=== PATIENT | female | born 1940 | race Caucasian/White ===

== ENCOUNTER 2023-03-28 18:51 | Emergency (ER) | payer MEDICARE, SELFPAY ==
--- NOTE | ~2023-03-28 | CT_ITS ---
EXAMINATION: CT ANGIOGRAM OF THE CHEST WITH AND WITHOUT CONTRAST (CT PULMONARY ANGIOGRAM FOR PE) CLINICAL INFORMATION: Weakness, shortness of breath, recent inactivity. COMPARISON: None available. TECHNIQUE: Prior to contrast administration, noncontrast localization images were obtained. Subsequently, multidetector volumetric imaging was performed from the thoracic inlet to below the diaphragms following the administration of 65 mL Omnipaque 350 intravenous contrast. No contrast reaction reported Sagittal, coronal, and MIP oblique sagittal reformatted images were obtained on the CT workstation, uploaded to PACS, and reviewed. This CT examination was performed using dose optimization techniques as appropriate, variously including the following: *Automated exposure control *Adjustment of mA and/or kV according to patient size (this includes techniques or standardized protocols for targeted exams where dose is matched to indication/reason for exam; i.e. extremities or head) *Use of iterative reconstruction technique Total exam dose-length product 173 mGy-cm FINDINGS: QUALITY OF STUDY/CONTRAST BOLUS: Satisfactory. PULMONARY ARTERIES: No pulmonary emboli. THORACIC AORTA: No aneurysm. LUNG: No focal consolidation, nodules or masses. PLEURA: No pleural effusion or pneumothorax. MEDIASTINUM: Normal heart size. No pericardial effusion. No hilar or mediastinal lymphadenopathy. No evidence of septal bowing or right heart strain. CORONARY ARTERY CALCIFICATION: None visualized on this study. CHEST WALL/AXILLA: No axillary or internal mammary lymphadenopathy. OSSEOUS STRUCTURES: No acute or suspicious osseous abnormality. UPPER ABDOMEN: Unremarkable. No reflux of contrast into the hepatic veins to suggest elevated right heart pressures. CT/CT angio chest PE protocol IMPRESSION: No evidence for pulmonary embolism. No focal consolidation or pleural effusion. VTE: Negative.
--- NOTE | ~2023-03-28 | CT_ITS ---
EXAMINATION: CT HEAD WITHOUT CONTRAST CT CERVICAL SPINE WITHOUT CONTRAST CLINICAL INFORMATION: Fall. COMPARISON: None. TECHNIQUE: Imaging was performed from the skull base to vertex without intravenous administration of contrast. In addition, helical noncontrast CT imaging was acquired through the cervical spine and source images were reviewed along with axial reconstructions and sagittal and coronal MPRs. [This CT examination was performed using dose optimization techniques as appropriate, variously including the following: *Automated exposure control *Adjustment of mA and/or kV according to patient size (this includes techniques or standardized protocols for targeted exams where dose is matched to indication/reason for exam; i.e. extremities or head) *Use of iterative reconstruction technique] DLP: 844 mGy-cm FINDINGS: HEAD: No intracranial mass, hemorrhage, or midline shift is visualized. There is generalized global volume loss. There is mild prominence of the ventricles and the sulci . There is mild hypodensity of the periventricular white matter due to chronic small vessel ischemic disease. There are vascular calcifications of the internal carotid arteries bilaterally. No extra-axial collections are identified. No skull fracture. The paranasal sinuses and mastoid air cells are well aerated. CERVICAL SPINE: There is no evidence of acute cervical spine fracture. Vertebral bodies remain normal in height. Cervical vertebrae have normal alignment. There is multilevel degenerative spondylosis of the cervical spine with disc height narrowing and endplate spurs and facet joint arthrosis No pre- or paravertebral soft tissue abnormality is identified. Limited assessment of the lung apices is unremarkable. CT/CT cervical spine wo IV con IMPRESSION: 1. No acute intracranial pathology. 2. No CT evidence of acute cervical spine fracture or traumatic subluxation
[2023-03-28 19:00] VITALS: BP 132/76; PULSE 100; O2SAT 98
[2023-03-28 19:09] VITALS: BP 129/62; PULSE 100; RESP 18; TEMP 36.7; O2SAT 94
[2023-03-28 19:26] VITALS: BP 124/60; PULSE 100; RESP 16; TEMP 36.6; O2SAT 94; BMI 23.6
--- NOTE | 2023-03-28 19:41 | ECG_ITS ---
Test Reason : FALL Blood Pressure : / mmHG Vent. Rate : 094 BPM Atrial Rate : 094 BPM P-R Int : 166 ms QRS Dur : 088 ms QT Int : 350 ms P-R-T Axes : 033 -02 018 degrees QTc Int : 437 ms Normal sinus rhythm Lateral infarct , age undetermined Nonspecific ST abnormality Abnormal ECG When compared with ECG of 27-APR-2018 07:20, Nonspecific T wave abnormality, improved in Inferior leads T wave inversion no longer evident in Anterior leads Referred By: Patrica Romero Electronically Signed By:RENETTA MAY
--- NOTE | 2023-03-28 20:17 | ED.FALL ---
HPI - Fall General Chief Complaint: Fall Stated Complaint: called for lift assist,weakness,no injury Time Seen by Provider: 03/28/23 19:12 Source: patient and other Mode of arrival: EMS History of Present Illness HPI Narrative: This is an 82-year-old female who is brought in by EMS after they were called for a lift assist secondary to weakness and inability to stand. According to the patient she has had a recent compression fracture that she is being treated with point injections and states that she was walking up 1 stair to the entrance of her home this evening fall using her walker and tripped. Patient denies injuries although she has obvious abrasions to the right side of her face/arm and knee, she denies loss of consciousness and then states that when she attempted to stand up she was very weak and could not stand. Related Data Previous Rx's Medication Instructions Recorded cefdinir 300 mg capsule 300 mg PO BID 5 days #10 caps 03/29/23 Allergies Allergy/AdvReac Type Severity Reaction Status Date / Time No Known Allergies Allergy Verified 03/28/23 19:28 Review of Systems Review of Systems: Pertinent positives and negatives as stated in HPI [facility] Past Medical History Source: nursing notes reviewed Social History Social History Smoked in Last 30 Days: No Use of substances other than those prescribed or required for medical reasons: No Advance Directives: No Advance Directives Information Provided: No Physical Exam Vital Signs: Vital Signs: Last Vital Signs Temp 98.5 F 03/29/23 02:20 Pulse 88 03/29/23 02:20 Resp 17 03/29/23 02:20 BP 160/86 H 03/29/23 02:20 Pulse Ox 95 03/29/23 02:20 O2 Del Method Room Air 03/29/23 02:20 BMI result Body Mass Index 23.6 VITAL SIGNS: Reviewed. GENERAL: Well developed, well nourished, in no acute distress. HEAD: Normocephalic/abrasion to right cheek EYES: PERRLA, EOMI EARS: Ext canals without abnormality NOSE: Nares patent bilateral OROPHARYNX: no oral lesions noted, posterior pharynx clear NECK: Supple, no adenopathy LUNGS: Normal breath sounds. No adventitious sounds or accessory muscle use. SpO2<93> CARDIOVASCULAR: Regular rate and rhythm without noted murmurs ABDOMEN: Soft, non-tender, non-distended with bowel sounds. MUSCULOSKELETAL: No tenderness, deformities, or effusions noted on gross inspection. EXTREMITIES: No cyanosis, clubbing or edema. RUE: Superficial abrasions RLE: Superficial abrasions, specifically to the knee SKIN: Inspection of the skin reveals no rashes NEUROLOGIC: Alert and oriented x 4. Strength and sensation to light touch were grossly intact x 4. Medications Administered Discontinued Medications Generic Name Dose Route Start Last Admin Trade Name Swati PRN Reason Stop Dose Admin Sodium Chloride 1,000 mls @ 999 mls/hr 03/28/23 22:15 03/28/23 23:35 Ns IV 03/28/23 23:15 Infused .Q1H1M JEANA Infusion Ceftriaxone Sodium 1 gm/ 50 mls @ 100 mls/hr 03/28/23 22:03 03/28/23 23:00 Sodium Chloride IV 03/28/23 22:32 Infused ONCE ONE Infusion Iohexol 65 ml 03/29/23 01:42 03/29/23 01:44 Iohexol 350 Mg/Ml 100 Ml Infus..Btl IV 03/29/23 01:43 65 ml ONCE ONE Administration Medical Decision Making Medical Decision Making [facility] Narrative: 82-year-old female with history and clinical presentation on initial evaluation appear to be mechanical fall possibly due to infection in we did find a UTI, however on review of serial troponin it is elevated, although patient does deny any chest pain an EKG does not present with any ST elevation. After further thinking I do feel that patient's activity level has likely decreased after the compression fracture and with the elevated troponin of unknown etiology combine with a fall and EKG without significant findings. CT scan of the head without evidence of intracranial hemorrhage and cervical spine without fracture or subluxation and otherwise my interpretation is in agreement with radiology's impression. Will add D-dimer, CPK as possible etiologies for the elevated troponins. D-dimer is elevated to over [address] Bermeo - follow-up CT angio PE protocol - Trop #3 Differential Diagnosis Differential Diagnoses: The differential diagnosis associated with the presentation includes Please see the discussion above Admission/Observation Consideration of admission/observation: Escalation of care including admission/observation considered Please see the discussion above Lab Data [facility] Lab Attestation statement: I reviewed the patient's lab results. Please see the discussion above 03/28/23 20:20 03/28/23 20:20 Labs: Lab Results 03/28/23 03/28/23 03/28/23 Range/Units 20:20 20:59 22:22 WBC 20.7 H (4.8-10.8) X10*3/uL RBC 4.10 L (4.20-5.50) X10*6/uL Hgb 14.0 (12.0-16.0) g/dl Hct 41.1 (37.0-47.0) % MCV 100.2 H (80.0-98.0) fL MCH 34.1 H (27.0-33.0) pg MCHC 34.1 (31.0-35.0) g/dl RDW 14.4 (11.0-16.0) % Plt Count 253 (160-400) X10*3/uL MPV 8.7 L (9.4-12.3) fL Immature Gran % (Auto) 1.3 H (0.0-0.4) % Neut % (Auto) 85.3 H (45-73) % Lymph % (Auto) 4.5 L (20-40) % [place] % (Auto) 8.3 (2-11) % Eos % (Auto) 0.4 (0-4) % Baso % (Auto) 0.2 (0-2) % Lymph # (Auto) 0.9 L (1.2-4.9) X10*3/uL [place] # (Auto) 1.7 H (0.1-1.2) X10*3/uL Eos # (Auto) 0.1 (0.0-0.4) X10*3/uL Baso # (Auto) 0.1 (0.0-0.2) X10*3/uL Abs Immat Gran (auto) 0.26 H (0.00-0.03) X10*3/uL Absolute Neuts (auto) 17.6 H (2.0-8.3) x10*3/uL Absolute Nucleated RBC 0.000 (0.0-0.012) X10*3/uL Nucleated RBC % (auto) 0.0 (0.0-0.2) /100WBC Smear Tech's Comments VERIFIED PT 11.3 (11.1-13.3) SEC INR 0.9 (0.9-1.1) D-Dimer High Sensitivty 1106 NG/ML Sodium 134 L (135-145) mmol/L Potassium 4.0 (3.3-5.1) mmol/L Chloride 105 (96-108) mmol/L Carbon Dioxide 20 L (22-29) mmol/L Anion Gap 13 (12-20) BUN 20 H (9-16) mg/dL Creatinine 0.97 (0.5-1.4) mg/dL Estim Creat Clear Calc 37.9 Estimated GFR 55 Random Glucose 141 H (60-115) mg/dL Lactic Acid 1.4 (0.5-2.0) mmol/L Calcium 9.4 (8.4-10.2) mg/dL Total Bilirubin 0.6 (0.0-1.0) mg/dL AST 14 (5-31) U/L ALT 15 (0-31) U/L Alkaline Phosphatase 100 (39-117) U/L Total Creatine Kinase 23 L (26-140) U/L Troponin I High Sens 57.2 H* 83.6 H* (<3.5-17.0) ng/L Total Protein 6.7 (6.5-8.0) g/dL Albumin 3.4 L (3.5-5.0) g/dL Urine Color Yellow Urine Appearance Cloudy Urine pH 5.5 (5.0-9.0) Ur Specific [place] 1.020 (1.005-1.025) Urine Protein 100 (2+) H (Neg-Trace) mg/dL Urine Glucose (UA) Negative (Negative) mg/dL Urine Ketones Negative (Negative) mg/dL Urine Blood Moderate (2+) H (Negative) Urine Nitrite Positive H (Negative) Ur Leukocyte Esterase Large (3+) H (Negative) Urine RBC 3-5 H (0-2) /HPF Urine WBC >50 H (0-5) /HPF Ur Squamous Epith Cells 0-2 (0-2) /HPF Urine Bacteria 4+ (None Seen) Hyaline Casts >20 (0-2) /LPF Granular Casts Present COVID-19 ([facility]) Negative (Negative) COVID-19 Clin Com See Note Independent Interpretation I performed an independent interpretation of an: EKG Interpretation: Normal sinus rhythm, HR-94, no STEMI, med ST depressions noted in V3-V6. On review of prior EKG from 04/27/2018 there are not significant changes although EKG is abnormal. Normal sinus rhythm, HR-87 STEMI, MI/QRS/QTC is within normal limits. Radiology Impression Discussion of test interpretation with radiology: I have reviewed the radiologist's reading. Radiologist Impression: Please see the discussion above Discharge Plan Discharge Clinical Impression: Fall, Acute UTI Patient Disposition: Still a Patient Prescriptions: New cefdinir 300 mg capsule 300 mg PO BID 5 Days Qty: 10 0RF
[2023-03-28 20:26] LABS: Basophils Absolute Auto 0.1 X10*3/uL (0.0-0.2); Basophils Percent Auto 0.2 % (0-2); Eosinophils Absolute Auto 0.1 X10*3/uL (0.0-0.4); Eosinophils Percent Auto 0.4 % (0-4); Hematocrit 41.1 % (37.0-47.0); Imm Gran Abs Auto 0.26 X10*3/uL (0.00-0.03); Imm Gran Pct Auto 1.3 % (0.0-0.4); Lymphocytes Absolute Auto 0.9 X10*3/uL (1.2-4.9); Lymphocytes Percent Auto 4.5 % (20-40); Mean Corpuscular HGB Conc 34.1 g/dl (31.0-35.0); Mean Corpuscular Hemoglobin 34.1 pg (27.0-33.0); Mean Corpuscular Volume 100.2 fL (80.0-98.0); Mean Platelet Volume 8.7 fL (9.4-12.3); Monocytes Absolute Auto 1.7 X10*3/uL (0.1-1.2); Monocytes Percent Auto 8.3 % (2-11); Neutrophils Absolute Auto 17.6 x10*3/uL (2.0-8.3); Neutrophils Percent Auto 85.3 % (45-73); Platelet Count 253 X10*3/uL (160-400); Red Cell Distribution Width 14.4 % (11.0-16.0); SCAN SMEAR FLAG 1; White Blood Count 20.7 X10*3/uL (4.8-10.8)
[2023-03-28 20:35] LABS: INTERNATIONAL NORM RATIO 0.9 (0.9-1.1); Prothrombin Time 11.3 SEC (11.1-13.3)
[2023-03-28 20:42] LABS: Alanine Aminotransferase 15 U/L (0-31); Albumin Level 3.4 g/dL (3.5-5.0); Alkaline Phosphatase 100 U/L (39-117); Anion Gap 13 (12-20); Aspartate Amino Transferase 14 U/L (5-31); Bilirubin Total 0.6 mg/dL (0.0-1.0); Blood Urea Nitrogen 20 mg/dL (9-16); Calcium 9.4 mg/dL (8.4-10.2); Carbon Dioxide 20 mmol/L (22-29); Chloride 105 mmol/L (96-108); Creatinine Clr Calc Pharmacy 37.9; Estimated Glomerular Filt Rate 55; Glucose Random 141 mg/dL (60-115); Sodium 134 mmol/L (135-145); Total Protein 6.7 g/dL (6.5-8.0)
[2023-03-28 20:43] LABS: COVID-19 Test Negative (Negative); IDNOW Serial# 08D9AD1C
[2023-03-28 20:56] LABS: MANUAL DIFF FLAG SCAN; Troponin-I High Sensitivity 57.2 ng/L (<3.5-17.0)
[2023-03-28 20:57] LABS: SLIDE REVIEW VERIFIED
[2023-03-28 20:59] VITALS: BP 99/52; PULSE 91; RESP 16; TEMP 36.8; O2SAT 93
[2023-03-28 21:08] LABS: Appearance Urine Cloudy; Color Urine Yellow; Glucose Urine UA Negative (Negative); Leukocyte Esterase Urine Large (3+) (Negative); Nitrite Urine Positive (Negative); PH 5.5 (5.0-9.0); UMIC TRIGGER UACC YES; Urine Blood Moderate (2+) (Negative); Urine Ketones Negative (Negative); Urine Protein 100 (2+) mg/dL (Neg-Trace)
[2023-03-28 21:23] LABS: Bacteria Urine 4+ (None Seen); Granular Casts Urine Present; Hyaline Casts Urine >20 /LPF (0-2); Squamous Epithelial Cell Urine 0-2 /HPF (0-2); UACC Culture Trigger YES; WBC Urine >50 /HPF (0-5)
[2023-03-28] MEDS: cefTRIAXone sodium 1 GM in 0.9 % Sodium Chloride 50 ML IV (22:30)
[2023-03-28] MEDS: 0.9 % Sodium Chloride 1,000 ML 999 ML IV (22:31)
[2023-03-28 22:59] LABS: Lactic Acid 1.4 mmol/L (0.5-2.0)
[2023-03-28 23:07] LABS: Troponin-I High Sensitivity 83.6 ng/L (<3.5-17.0)
--- NOTE | 2023-03-28 23:07 | ECG_ITS ---
Test Reason : ELEVATED TROP Blood Pressure : / mmHG Vent. Rate : 087 BPM Atrial Rate : 087 BPM P-R Int : 170 ms QRS Dur : 090 ms QT Int : 368 ms P-R-T Axes : 049 -03 031 degrees QTc Int : 442 ms Normal sinus rhythm Nonspecific ST abnormality Abnormal ECG When compared with ECG of 28-MAR-2023 20:08, No significant change was found Referred By: Patrica Romero Electronically Signed By:RENETTA MAY
[2023-03-28 23:52] LABS: D Dimer High Sensitivity 1106 NG/ML
[2023-03-29 00:10] VITALS: RESP 18
[2023-03-29] MEDS: iohexoL 350 MG/ML 100 ML INFUS..BTL 65 ML IV (01:44)
[2023-03-29 02:20] VITALS: BP 160/86; PULSE 88; RESP 17; TEMP 36.9; O2SAT 95
[2023-03-29 03:42] LABS: Troponin-I High Sensitivity 81.3 ng/L (<3.5-17.0)
== END 2023-03-29 05:07 | disposition home or self-care (01) ==
PROVIDERS: Student in an Organized Health Care Education/Training Program; Emergency Provider Internal Medicine; PCP Family Medicine
DX: S09.90XA Unspecified injury of head, initial encounter (principal); S00.81XA Abrasion of other part of head, initial encounter; S40.811A Abrasion of right upper arm, initial encounter; S80.211A Abrasion, right knee, initial encounter; R51.9 Headache, unspecified; M54.2 Cervicalgia; N39.0 Urinary tract infection, site not specified; W01.10XA Fall on same level from slipping, tripping and stumbling with subsequent striking against unspecified object, initial encounter; Y93.9 Activity, unspecified; Y92.9 Unspecified place or not applicable; Y99.9 Unspecified external cause status; Z20.822 Contact with and (suspected) exposure to COVID-19; Z20.828 Contact with and (suspected) exposure to other viral communicable diseases; Z79.899 Other long term (current) drug therapy
CPT/HCPCS: 36415; 70450; 71275; 72125; 80053; 81001; 82550; 83605; 84484; 85025; 85379; 85610; 87040; 87077; 87086; 87088; 87186; 87205; 87635; 93005; 96365; 99285; J0696; Q9967

== ENCOUNTER 2023-03-29 17:15 | Inpatient (IN) | payer MEDICARE, SELFPAY ==
--- NOTE | 2023-03-29 17:26 | ECG_ITS ---
Test Reason : ABNORMAL LABS Blood Pressure : / mmHG Vent. Rate : 080 BPM Atrial Rate : 080 BPM P-R Int : 182 ms QRS Dur : 088 ms QT Int : 374 ms P-R-T Axes : 031 -16 005 degrees QTc Int : 431 ms Normal sinus rhythm Minimal voltage criteria for LVH, may be normal variant ( R in aVL ) Nonspecific ST abnormality Abnormal ECG When compared with ECG of 28-MAR-2023 23:41, No significant change was found Referred By: Generic ED Physician Electronically Signed By:RENETTA MAY
[2023-03-29 17:43] VITALS: BP 150/72; PULSE 79; RESP 16; TEMP 37.3; O2SAT 98; BMI 23.8
--- NOTE | 2023-03-29 17:44 | ED.GENADULT ---
HPI - General Adult General Chief complaint: Recheck/Abnormal Lab/Rx Stated complaint: abnormal labs, called back in Time Seen by Provider: 03/29/23 19:02 Source: patient and RN notes reviewed Mode of arrival: ambulatory Limitations: no limitations History of Present Illness HPI narrative: This is a 82-year-old female, with a past medical history of polycythemia vera, presenting to the emergency department after being called due to 2 sets of + Gram-negative blood cultures Patient was seen yesterday after having weakness and inability to stand. She was found to have a urinary tract infection, and was given ceftriaxone IV. She was discharged on cefdinir which she has not taken. Patient was called this afternoon stating to return given 2/2 positive gram negative sue blood cultures. Patient reports that she is feeling okay, still reporting generalized malaise and generalized weakness. No fevers, chills, chest pain, shortness from abdominal pain, nausea vomiting or diarrhea. She denies any urinary symptoms. No other complaints or concerns at this time. MD complaint: weakness Onset (ago): day(s) Radiation: non-radiation Severity: mild Relieving factors: none Exacerbating factors: none Associated symptoms: denies other symptoms Treatments prior to arrival: none Related Data Home Medications Medication Instructions Recorded Confirmed digoxin 125 mcg (0.125 mg) tablet 125 mcg PO DAILY 03/30/23 03/30/23 hydroxyurea 500 mg capsule 1,000 mg PO SUSA@89903/30/23 03/30/23 hydroxyurea 500 mg capsule 500 mg PO MOTUWETHFR@89903/30/23 03/30/23 levothyroxine 75 mcg tablet 75 mcg PO DAILY@0603/30/23 03/30/23 lisinopril 10 mg tablet 10 mg PO DAILY 03/30/23 03/30/23 lorazepam 0.5 mg tablet 0.5 mg PO BID PRN Anxiety 03/30/23 03/30/23 lovastatin 10 mg tablet 10 mg PO DAILY 03/30/23 03/30/23 metoprolol tartrate 100 mg tablet 50 mg PO BID 03/30/23 03/30/23 Previous Rx's Medication Instructions Recorded amlodipine 5 mg tablet 5 mg PO DAILY #30 tabs 04/01/23 aspirin 81 mg chewable tablet 81 mg PO DAILY #30 tabs 04/01/23 cefuroxime axetil 500 mg tablet 500 mg PO BID #28 tabs 04/01/23 Allergies Allergy/AdvReac Type Severity Reaction Status Date / Time No Known Allergies Allergy Verified 03/28/23 19:28 Review of Systems Review of Systems: Yes all other systems are reviewed and are negative FOR[facility]LY [facility], [facility] Past Medical History Attestation statement: The following information was validated with the patient. Medical History Hypothyroidism Polycythemia Hyperlipidemia Hypertension Surgical History No pertinent past surgical history Social History Social History Household Members: None Housing: House Do you presently have visiting nurse or other home services: No Alcohol intake: current Alcohol intake frequency: does not drink Patient Tobacco Use Status: Never used Tobacco Second Hand Smoke Exposure: No service: No Physical Exam ED Vital Signs: Vital Signs - 24 hr 03/29/23 17:43 03/29/23 19:55 03/29/23 21:37 Temperature 99.2 F 98.5 F 99.8 F Pulse Rate 79 81 83 Respiratory Rate 16 33 H 33 H Blood Pressure 150/72 H 140/68 H 154/77 H Pulse Oximetry 98 98 97 Oxygen Delivery Method Room Air Room Air Room Air BMI result Body Mass Index 23.8 Const General: cooperative, comfortable and no acute distress Orientation/consciousness: patient oriented x3 Limitations: no limitations HENMT Head: Yes normal to inspection, Yes normocephalic and Yes atraumatic Ears: hearing grossly normal bilaterally General nose exam: Normal external nose present Face and sinus: Yes normal facial exam Mouth: Normal oral and palatal mucosa present, oropharynx normal and moist mucous membranes Throat: Yes posterior oropharynx normal Eyes General: appearance normal, both eyes and all related structures Eyelids: Yes eyelids normal Conjunctivae: conjunctivae normal Sclerae: sclerae normal Pupils: Equal, round and reactive pupils present EOM: EOMs intact bilaterally Neck Neck: Yes normal visual inspection, Yes full ROM and Yes no lymphadenopathy Lymphatic: no lymphadenopathy noted Chest Chest palpation & inspection: normal inspection of the chest Resp Effort & Inspection: normal respiratory effort and able to speak in complete sentences Auscultation: clear to auscultation bilaterally, no crackles, no rales, no rhonchi and no wheezes Cardio Rate: regular rate Rhythm: regular rhythm Heart sounds: S1 normal heart sound present and S2 normal heart sound present GI Other: Abdomen is soft, non tender, nondistended. Inspection: Yes normal to inspection Skin General skin exam: no rashes or lesions noted Trauma: no lacerations or abrasions Wounds: no wounds Neuro General: patient oriented x3 and moves all extremities Cranial nerves: Yes Equal, round and reactive pupils present Extrem General: Yes normal to inspection Right upper extremity: normal to inspection Left upper extremity: normal to inspection Right lower extremity: normal to inspection Left lower extremity: normal to inspection Course Course Course Narrative: RME- 82-year-old female presents for evaluation of positive blood cultures. Patient was seen here yesterday and was ultimately discharged home on cefdinir for UTI. She was called back today as she had positive blood cultures of Gram-negative rods in both sets. Plan to repeat labs including blood cultures and urine and she will likely require admission for IV antibiotics. She will be brought straight back to the main ER Reevaluation(s) Reevaluation #1: lactic acid improved to 1.6 after receiving 2L IV fluids and IV ceftriaxone. Discussed case with hospitalist, Dr. Jack who accepts transfer of care for bacteremia and weakness. Time: 23:06 Medications Administered Discontinued Medications Generic Name Dose Route Start Last Admin Trade Name Zhenq PRN Reason Stop Dose Admin Amlodipine Besylate 5 mg 03/31/23 15:10 04/01/23 08:37 Amlodipine Besylate 5 Mg Tablet PO 5 mg DAILY JEANA Administration Protocol Digoxin 0.125 mg 03/30/23 09:55 04/01/23 08:37 Digoxin 0.125 Mg Tablet PO 0.125 mg DAILY JEANA Administration Heparin Sodium (Porcine) 5,000 unit 03/29/23 23:30 04/01/23 12:10 Heparin Sodium,Porcine 5,000 Unit/Ml Vial SUBCUT 5,000 unit Q12H JEANA Administration Hydralazine HCl 5 mg 03/30/23 21:08 03/30/23 21:23 Hydralazine Hcl 20 Mg/Ml Vial IVPUSH 03/30/23 21:09 5 mg ONCE ONE Administration Protocol Hydralazine HCl 5 mg 03/31/23 15:05 03/31/23 17:43 Hydralazine Hcl 20 Mg/Ml Vial IVPUSH 5 mg Q6H PRN Administration SBP > 180 Protocol Hydroxyurea 500 mg 04/01/23 09:00 04/01/23 08:38 Hydroxyurea 500 Mg Capsule PO 500 mg MOTUWETHFR@0900 JEANA Administration Hydroxyurea 1,000 mg 03/31/23 09:00 03/31/23 08:03 Hydroxyurea 500 Mg Capsule PO 1,000 mg SUSA@0900 JEANA Administration Sodium Chloride 1,000 mls @ 999 mls/hr 03/29/23 19:29 03/29/23 21:52 Ns IV 03/29/23 20:29 Infused .Q1H1M ONE Infusion Ceftriaxone Sodium 2 gm/ 50 mls @ 100 mls/hr 03/29/23 19:46 03/29/23 21:52 Sodium Chloride IV 03/29/23 20:15 Infused ONCE ONE Infusion Sodium Chloride 1,000 mls @ 999 mls/hr 03/29/23 21:09 03/30/23 14:53 Ns IV 03/29/23 22:09 Infused .Q1H1M ONE Infusion Ceftriaxone Sodium 1 gm/ 50 mls @ 100 mls/hr 03/30/23 20:00 03/31/23 20:28 Sodium Chloride IV Infused Q24H EJANA Infusion Levothyroxine Sodium 75 mcg 03/30/23 10:00 04/01/23 05:45 Levothyroxine Sodium 75 Mcg Tablet PO 75 mcg DAILY@0600 JEANA Administration Lisinopril 10 mg 03/30/23 09:55 04/01/23 08:37 Lisinopril 10 Mg Tablet PO 10 mg DAILY JEANA Administration Protocol Metoprolol Tartrate 50 mg 03/30/23 09:55 04/01/23 08:37 Metoprolol Tartrate 50 Mg Tablet PO 50 mg BID JEANA Administration Protocol Pravastatin Sodium 10 mg 03/31/23 21:00 03/31/23 19:54 Pravastatin Sodium 10 Mg Tablet PO 10 mg BEDTIME JEANA Administration Sodium Chloride 3 ml 03/30/23 00:00 04/01/23 15:39 0.9 % Sodium Chloride Flush 3 Ml Syringe IVFLUSH Not Given QSHIFT [facility] Medical Decision Making Medical Decision Making MDM Narrative: 82-year-old female, hx of polycythemia, presenting to the emergency department with complaints of weakness. She was seen yesterday and was diagnosed with urinary tract infection. White blood cell count was 20k yesterday. She was called today given Gram-negative sue bacteremia 2/2 sets. Blood pressure elevated at 150/72, patient is otherwise nontoxic appearing. Labs were performed in the waiting room, white blood cell count 16.8 K. Lactic acid 2.1. IV fluids and ceftriaxone 2 g IV was ordered. I discussed this case with my attending physician, Dr. Fontaine. Given positive preliminary+ blood cultures, likely need hospital admission. Differential Diagnosis Differential Diagnoses: The differential diagnosis associated with the presentation includes Urinary tract infection, weakness, electrolyte abnormality, bacteremia Admission/Observation Consideration of admission/observation: Escalation of care including admission/observation considered Patient will be needing hospital admission given 2/2 positive blood cultures. Consult Healthcare Provider Management of the patient was discussed with: Hospitalist Lab Data MDM Lab Attestation statement: I reviewed the patient's lab results. Leukocytosis at 16.8, stable H&H, lactic acidosis at 2.1. 03/31/23 05:24 03/31/23 05:24 Labs: Lab Results 03/29/23 03/29/23 Range/Units 18:10 21:56 WBC 16.8 H (4.8-10.8) X10*3/uL RBC 3.90 L (4.20-5.50) X10*6/uL Hgb 13.4 (12.0-16.0) g/dl Hct 40.5 (37.0-47.0) % MCV 103.8 H (80.0-98.0) fL MCH 34.4 H (27.0-33.0) pg MCHC 33.1 (31.0-35.0) g/dl RDW 14.6 (11.0-16.0) % Plt Count 233 (160-400) X10*3/uL MPV 8.8 L (9.4-12.3) fL Immature Gran % (Auto) 0.6 H (0.0-0.4) % Neut % (Auto) 87.1 H (45-73) % Lymph % (Auto) 4.7 L (20-40) % [place] % (Auto) 7.3 (2-11) % Eos % (Auto) 0.1 (0-4) % Baso % (Auto) 0.2 (0-2) % Lymph # (Auto) 0.8 L (1.2-4.9) X10*3/uL [place] # (Auto) 1.2 (0.1-1.2) X10*3/uL Eos # (Auto) 0.0 (0.0-0.4) X10*3/uL Baso # (Auto) 0.0 (0.0-0.2) X10*3/uL Abs Immat Gran (auto) 0.10 H (0.00-0.03) X10*3/uL Absolute Neuts (auto) 14.6 H (2.0-8.3) x10*3/uL Absolute Nucleated RBC 0.000 (0.0-0.012) X10*3/uL Nucleated RBC % (auto) 0.0 (0.0-0.2) /100WBC Sodium 134 L (135-145) mmol/L Potassium 4.5 (3.3-5.1) mmol/L Chloride 104 (96-108) mmol/L Carbon Dioxide 22 (22-29) mmol/L Anion Gap 13 (12-20) BUN 21 H (9-16) mg/dL Creatinine 1.04 (0.5-1.4) mg/dL Estim Creat Clear Calc 35.4 Estimated GFR 51 Random Glucose 129 H (60-115) mg/dL Lactic Acid 2.1 H* (0.5-2.0) mmol/L Lactic Acid F/U @ 2Hr 1.6 (0.5-2.0) mmol/L Calcium 9.5 (8.4-10.2) mg/dL Total Bilirubin 0.4 (0.0-1.0) mg/dL AST 15 (5-31) U/L ALT 14 (0-31) U/L Alkaline Phosphatase 102 (39-117) U/L Total Protein 6.9 (6.5-8.0) g/dL Albumin 3.4 L (3.5-5.0) g/dL Lipase 31 (8-78) U/L Critical Care Time Critical Care Time Critical Care Time: Yes Total Critical Care Time: 45 Attestation: I have personally provided critical care time exclusive of time spent on separately billable procedures. Time includes review of lab data, radiology results, discussion with consultants, and monitoring for potential decompensation. Intervention performed as documented. Discharge Plan Discharge Clinical Impression: Weakness, Bacteremia due to Gram-negative bacteria Patient Disposition: Admitted As Inpatient Interventions: Admission Worksheet (ED) Last Done: 03/30/23 14:13 Discharge Date/Time: 03/30/23 14:13
[2023-03-29 18:15] LABS: MANUAL DIFF FLAG NO
[2023-03-29 18:28] LABS: Basophils Percent Auto 0.2 % (0-2); Eosinophils Percent Auto 0.1 % (0-4); Hematocrit 40.5 % (37.0-47.0); Hemoglobin 13.4 g/dl (12.0-16.0); Imm Gran Pct Auto 0.6 % (0.0-0.4); Lymphocytes Absolute Auto 0.8 X10*3/uL (1.2-4.9); Lymphocytes Percent Auto 4.7 % (20-40); Mean Corpuscular HGB Conc 33.1 g/dl (31.0-35.0); Mean Corpuscular Hemoglobin 34.4 pg (27.0-33.0); Mean Corpuscular Volume 103.8 fL (80.0-98.0); Mean Platelet Volume 8.8 fL (9.4-12.3); Monocytes Absolute Auto 1.2 X10*3/uL (0.1-1.2); Monocytes Percent Auto 7.3 % (2-11); Neutrophils Absolute Auto 14.6 x10*3/uL (2.0-8.3); Neutrophils Percent Auto 87.1 % (45-73); Platelet Count 233 X10*3/uL (160-400); Red Cell Distribution Width 14.6 % (11.0-16.0); White Blood Count 16.8 X10*3/uL (4.8-10.8)
[2023-03-29 18:34] LABS: Alanine Aminotransferase 14 U/L (0-31); Albumin Level 3.4 g/dL (3.5-5.0); Alkaline Phosphatase 102 U/L (39-117); Anion Gap 13 (12-20); Aspartate Amino Transferase 15 U/L (5-31); Bilirubin Total 0.4 mg/dL (0.0-1.0); Blood Urea Nitrogen 21 mg/dL (9-16); Calcium 9.5 mg/dL (8.4-10.2); Carbon Dioxide 22 mmol/L (22-29); Chloride 104 mmol/L (96-108); Creatinine Clr Calc Pharmacy 35.4; Estimated Glomerular Filt Rate 51; Glucose Random 129 mg/dL (60-115); Lipase 31 U/L (8-78); Potassium 4.5 mmol/L (3.3-5.1); Sodium 134 mmol/L (135-145); Total Protein 6.9 g/dL (6.5-8.0)
[2023-03-29 19:00] LABS: Lactic Acid 2.1 mmol/L (0.5-2.0)
[2023-03-29 19:55] VITALS: BP 140/68; PULSE 81; RESP 33; TEMP 36.9; O2SAT 98
[2023-03-29] MEDS: 0.9 % Sodium Chloride 1,000 ML 999 ML IV ×2 (20:02→21:52)
[2023-03-29] MEDS: cefTRIAXone sodium 2 GM in 0.9 % Sodium Chloride 50 ML IV (20:02)
[2023-03-29 20:14] LABS: Reflex Lactate? Lactic Acid Added
[2023-03-29 21:37] VITALS: BP 154/77; PULSE 83; RESP 33; TEMP 37.7; O2SAT 97
[2023-03-29 22:11] LABS: ~Lactic Acid-LAB USE ONLY 1.6 mmol/L (0.5-2.0)
--- NOTE | 2023-03-29 22:38 | PC.NURSE ---
Patient alert and oriented. Denies pain. VSS. IV line intact and patent. IV fluid running. repeat lactic drawn by accessibility lift technician. Pt requested bedside commode This RN provided commode and wipes for clean catch urine sample ordered.
[2023-03-29 23:59] VITALS: BP 186/82; PULSE 80; RESP 15; TEMP 37.6; O2SAT 96
[2023-03-30] VITALS (8 sets, daily range): BP systolic 166–200; BP diastolic 82–98; PULSE 68–84; RESP 15–28; TEMP 36.1–37.6; O2SAT 96–99; BMI 25.3
[2023-03-30 00:09] LABS: Appearance Urine Clear; Color Urine Yellow; Glucose Urine UA 100 mg/dL (Negative); Leukocyte Esterase Urine Trace (Negative); Nitrite Urine Negative (Negative); PH 5.5 (5.0-9.0); Specific Gravity - Urine 1.025 (1.005-1.025); UMIC TRIGGER UACC YES; Urine Blood Small (1+) (Negative); Urine Ketones Negative (Negative); Urine Protein 100 (2+) mg/dL (Neg-Trace)
[2023-03-30 00:39] LABS: Bacteria Urine None Seen (None Seen); Granular Casts Urine Present; UACC Culture Trigger YES
[2023-03-30] MEDS: Heparin Sodium,Porcine 5,000 UNIT/ML VIAL 5000 UNIT SUBCUT ×3 (02:52→23:13)
[2023-03-30] MEDS: 0.9 % Sodium Chloride Flush 3 ML SYRINGE IVFLUSH ×4 (03:05→19:46)
--- NOTE | 2023-03-30 03:11 | PC.NURSE ---
Pt attempted to get back into bed after using commode and pulled her IV line out. This RN applied pressure to site and cleaned pt up as her arm was covered in blood. cleaned up blood covered floor as well. Inserted new IV site at right wrist- 20g. line is patent and intact. administered medications as per sep. PT denies any pain at this time. New gown, pillow covers and socks given to pt. Plan of care ongoing
--- NOTE | 2023-03-30 03:47 | PC.NURSE ---
Notified of Pt's elevated bp. Pt did not take her evening dose. Informed that this RN completed med rec.
--- NOTE | 2023-03-30 05:26 | PC.NURSE ---
Round complete. Pt sleeping- even chest wall rising and unlabored breathing. Call valdez within reach.
--- NOTE | 2023-03-30 06:37 | PM.IMHP ---
History of Present Illness Date of Service: 03/30/23 Chief Complaint: Bacteremia This is a an 82-year-old female past medical history of hypothyroidism, hypertension, polycythemia, anxiety, hyperlipidemia, comes into the hospital after she received a call from the ED with positive blood cultures. Patient was seen in the hospital on 03 29 for urinary symptoms that she was complaining of urinary frequency, dysuria, was diagnosed with the UTI, started on p.o. antibiotics and sent home. Patient reports that she has had progressive weakness, denies any chest pain, shortness of breath, no abdominal pain nausea vomiting, no diarrhea constipation, no lower extremity edema. Denies any fever but has chills. On arrival to the ED patient hemodynamically stable Labs are significant for WBC count of 16.8, sodium 134, lactic acid of 2.1, UA remains positive for leukocyte Estrace WBC Patient's blood culture showing Gram-negative rods prelim Patient will be admitted for further management Review of Systems Review of Systems: Yes all other systems are reviewed and are negative [facility] Medical History (Updated 03/30/23 @ 06:41 by Neptali Jack MD) Hypothyroidism Polycythemia Hyperlipidemia Hypertension Surgical History (Updated 03/30/23 @ 06:41 by Neptali Jack MD) No pertinent past surgical history Social History (Updated 03/30/23 @ 06:41 by Neptali Jack MD) Alcohol intake: current Alcohol intake frequency: does not drink Patient Tobacco Use Status: Never used Tobacco Meds Allergies Allergy/AdvReac Type Severity Reaction Status Date / Time No Known Allergies Allergy Verified 03/28/23 19:28 Active Medications: Current Medications Acetaminophen (Acetaminophen 325 Mg Tablet) 650 mg PO Q6H PRN PRN Reason: Pain, Mild (Pain Scale 1-3) Heparin Sodium (Porcine) (Heparin Sodium,Porcine 5,000 Unit/Ml Vial) 5,000 unit SUBCUT Q12H JEANA Last Admin: 03/30/23 02:52 Dose: 5,000 unit Ceftriaxone Sodium 1 gm/ (Sodium Chloride) 50 mls @ 100 mls/hr IV Q24H JEANA Ondansetron HCl (Ondansetron Hcl 4 Mg/2 Ml Vial) 4 mg IVPUSH Q8H PRN PRN Reason: Nausea and Vomiting Sodium Chloride (0.9 % Sodium Chloride Flush 3 Ml Syringe) 3 ml IVFLUSH QSHIFT JEANA Last Admin: 03/30/23 03:05 Dose: 3 ml Home Medications Medication Instructions Recorded Confirmed Last Taken Type digoxin 125 mcg (0.125 mg) tablet 125 mcg PO DAILY 03/30/23 03/30/23 Unknown History hydroxyurea 500 mg capsule 500 mg PO USEASDIRECTD 03/30/23 03/30/23 Unknown History levothyroxine 75 mcg tablet 75 mcg PO DAILY 03/30/23 03/30/23 Unknown History lisinopril 10 mg tablet 10 mg PO DAILY 03/30/23 03/30/23 Unknown History lorazepam 0.5 mg tablet 0.5 mg PO BID PRN Anxiety 03/30/23 03/30/23 Unknown History lovastatin 10 mg tablet 10 mg PO DAILY 03/30/23 03/30/23 Unknown History metoprolol tartrate 100 mg tablet 50 mg PO BID 03/30/23 03/30/23 Unknown History Physical Exam Vital Signs and Narrative: Vital Signs: Last Vital Signs Temp 99.7 F 03/30/23 03:41 Pulse 84 03/30/23 03:41 Resp 15 03/30/23 03:41 BP 181/83 H 03/30/23 03:41 Pulse Ox 98 03/30/23 03:41 O2 Del Method Room Air 03/30/23 03:41 BMI result Body Mass Index 23.8 Results Labs 03/29/23 18:10 03/29/23 18:10 Labs: Laboratory Results - last 24 hr 03/29/23 03/29/23 03/30/23 18:10 21:56 00:02 MCV 103.8 H MCH 34.4 H MCHC 33.1 RDW 14.6 Plt Count 233 MPV 8.8 L Immature Gran % (Auto) 0.6 H Neut % (Auto) 87.1 H Lymph % (Auto) 4.7 L [place] % (Auto) 7.3 Eos % (Auto) 0.1 Baso % (Auto) 0.2 Lymph # (Auto) 0.8 L [place] # (Auto) 1.2 Eos # (Auto) 0.0 Baso # (Auto) 0.0 Abs Immat Gran (auto) 0.10 H Absolute Neuts (auto) 14.6 H Absolute Nucleated RBC 0.000 Nucleated RBC % (auto) 0.0 Anion Gap 13 Estim Creat Clear Calc 35.4 Estimated GFR 51 Random Glucose 129 H Lactic Acid 2.1 H* Lactic Acid F/U @ 2Hr 1.6 Calcium 9.5 Total Bilirubin 0.4 AST 15 ALT 14 Alkaline Phosphatase 102 Total Protein 6.9 Albumin 3.4 L Lipase 31 Urine Color Yellow Urine Appearance Clear Urine pH 5.5 Ur Specific [place] 1.025 Urine Protein 100 (2+) H Urine Glucose (UA) 100 H Urine Ketones Negative Urine Blood Small (1+) H Urine Nitrite Negative Ur Leukocyte Esterase Trace H Urine RBC 3-5 H Urine WBC 11-20 H Ur Squamous Epith Cells 3-5 Urine Bacteria None Seen Hyaline Casts 3-5 Granular Casts Present Assessment and Plan (1) Bacteremia due to Gram-negative bacteria: Status: Acute (2) Weakness: Status: Acute (3) Acute UTI: Status: Inactive Plan For 82-year-old female with past medical history of hypertension, polycythemia vera among others presents the hospital with complaints of weakness, as well as positive blood cultures after an ED visit # bacteremia - likely secondary to UTI - showing Gram-negative rods - started on IV ceftriaxone - follow final cultures #acute UTI - remains symptomatic - continue IV antibiotics - follow final cultures # weakness - very to acute infection - PT OT evaluation prior to discharge # hypertension - stable - continue antihypertensives # anxiety - continue lorazepam # polycythemia vera - continue hydroxyurea # hypothyroidism - continue levothyroxine Patient is also on digoxin and metoprolol but unsure why DVT prophylaxis: Heparin subQ Given need for IV antibiotics in the setting of bacteremia patient require minimum 2 night inpatient hospital stay for further management and monitoring Time Spent With Patient Time: Total time managing care of this patient today ____ minutes. Quality Stroke Does the patient have a stroke diagnosis?: No VTE Prior VTE?: No VTE Risk Level:: Medical - moderate - high VTE Device Contraindication: Treatment Not Indicated VTE Drug Contraindication: N/A - Med Ordered
[2023-03-30 06:38] LABS: MANUAL DIFF FLAG NO
[2023-03-30 06:42] LABS: Basophils Percent Auto 0.2 % (0-2); Eosinophils Percent Auto 0.1 % (0-4); Hematocrit 35.6 % (37.0-47.0); Hemoglobin 11.7 g/dl (12.0-16.0); Imm Gran Abs Auto 0.07 X10*3/uL (0.00-0.03); Imm Gran Pct Auto 0.6 % (0.0-0.4); Lymphocytes Absolute Auto 0.7 X10*3/uL (1.2-4.9); Lymphocytes Percent Auto 5.8 % (20-40); Mean Corpuscular HGB Conc 32.9 g/dl (31.0-35.0); Mean Corpuscular Hemoglobin 33.6 pg (27.0-33.0); Mean Corpuscular Volume 102.3 fL (80.0-98.0); Mean Platelet Volume 9.4 fL (9.4-12.3); Monocytes Absolute Auto 0.8 X10*3/uL (0.1-1.2); Monocytes Percent Auto 6.7 % (2-11); Neutrophils Absolute Auto 9.8 x10*3/uL (2.0-8.3); Neutrophils Percent Auto 86.6 % (45-73); Platelet Count 183 X10*3/uL (160-400); Red Blood Count 3.48 X10*6/uL (4.20-5.50); Red Cell Distribution Width 14.4 % (11.0-16.0); White Blood Count 11.3 X10*3/uL (4.8-10.8)
[2023-03-30 07:18] LABS: Blood Urea Nitrogen 14 mg/dL (9-16); Calcium 8.7 mg/dL (8.4-10.2); Estimated Glomerular Filt Rate > 60; Glucose Random 129 mg/dL (60-115)
[2023-03-30 07:27] LABS: Anion Gap 10 (12-20); Carbon Dioxide 19 mmol/L (22-29); Chloride 110 mmol/L (96-108); Potassium 3.5 mmol/L (3.3-5.1); Sodium 135 mmol/L (135-145)
--- NOTE | 2023-03-30 08:19 | PHA.MEDREC ---
Med rec completed overnight by nurse, reviewed in AM by pharmacy, matches with patient home pharmacy claim history Pharmacy Consult ? Medication Reconciliation Pharmacy has completed the medication reconciliation.
[2023-03-30] MEDS: Digoxin 0.125 MG TABLET PO (10:28)
[2023-03-30] MEDS: Metoprolol Tartrate 50 MG TABLET PO ×2 (10:29→19:44)
[2023-03-30] MEDS: lisinopriL 10 MG TABLET PO (10:30)
[2023-03-30] MEDS: Levothyroxine Sodium 75 MCG TABLET PO (10:30)
--- NOTE | 2023-03-30 13:33 | PC.NURSE ---
report given to CLEVE Coleman. pt will be transported to rm [id number]. pt aware of plan
--- NOTE | 2023-03-30 13:48 | P.PNIM_ITS ---
Subjective Subjective Date of Service: 03/30/23 Interval History: seen and examined this morning follow up for UTI, bacteremia seen in ED 03/28 after fall found to have UTI at that time and d/c home with abx. called to return when blood cultures turned positive denies abdominal pain, dysuria, fever or chills Review of Systems Review of Systems: Yes all other systems are reviewed and are negative Constitutional Constitutional: Denies chills and Denies fever(s) Cardiovascular Cardiovascular: Denies chest pain, Denies palpitations and Denies dyspnea Respiratory Respiratory: Denies cough and Denies dyspnea Gastrointestinal Gastrointestinal: Denies abdominal pain, Denies nausea and Denies vomiting Endocrine Endocrine: Denies palpitations Physical Exam 2 Vital Signs: Vital Signs: Last Vital Signs Temp 99.7 F 03/30/23 03:41 Pulse 77 03/30/23 10:30 Resp 28 H 03/30/23 10:30 BP 185/85 H 03/30/23 10:30 Pulse Ox 96 03/30/23 09:37 O2 Del Method Room Air 03/30/23 09:37 BMI result Body Mass Index 23.8 Const: General: cooperative, comfortable, no acute distress, alert and awake Nutritional Appearance: average body habitus Orientation/consciousness: p atient oriented x3 Resp: Effort & Inspection: normal respiratory effort, able to speak in complete sentences, no respiratory distress and no use of accessory muscles Cardio: Rate: regular rate GI: Inspection: No distended Palpation (GI): Soft to palpation and nontender Neuro: General: patient oriented x3, moves all extremities and CN's II-XI intact bilaterally Extrem: General: Yes no pedal edema Objective Data Active Medications Acetaminophen (Acetaminophen 325 Mg Tablet) 650 mg PO Q6H PRN PRN Reason: Pain, Mild (Pain Scale 1-3) Digoxin (Digoxin 0.125 Mg Tablet) 0.125 mg PO DAILY [facility] Last Admin: 03/30/23 10:28 Dose: 0.125 mg Documented By: RADHA Heparin Sodium (Porcine) (Heparin Sodium,Porcine 5,000 Unit/Ml Vial) 5,000 unit SUBCUT Q12H [facility] Last Admin: 03/30/23 11:53 Dose: 5,000 unit Documented By: FERDINAND Hydroxyurea (Hydroxyurea 500 Mg Capsule) 500 mg PO MOTUWETHFR@0900 [facility] Hydroxyurea (Hydroxyurea 500 Mg Capsule) 1,000 mg PO SUSA@0900 [facility] Ceftriaxone Sodium 1 gm/ (Sodium Chloride) 50 mls @ 100 mls/hr IV Q24H [facility] Levothyroxine Sodium (Levothyroxine Sodium 75 Mcg Tablet) 75 mcg PO DAILY@0600 [facility] Last Admin: 03/30/23 10:30 Dose: 75 mcg Documented By: RADHA Lisinopril (Lisinopril 10 Mg Tablet) 10 mg PO DAILY [facility]; Protocol Last Admin: 03/30/23 10:30 Dose: 10 mg Documented By: RADHA Lorazepam (Lorazepam 0.5 Mg Tablet) 0.5 mg PO BID PRN PRN Reason: Anxiety Metoprolol Tartrate (Metoprolol Tartrate 50 Mg Tablet) 50 mg PO BID [facility]; Protocol Last Admin: 03/30/23 10:29 Dose: 50 mg Documented By: RADHA Ondansetron HCl (Ondansetron Hcl 4 Mg/2 Ml Vial) 4 mg IVPUSH Q8H PRN PRN Reason: Nausea and Vomiting Pravastatin Sodium (Pravastatin Sodium 10 Mg Tablet) 10 mg PO BEDTIME [facility] Sodium Chloride (0.9 % Sodium Chloride Flush 3 Ml Syringe) 3 ml IVFLUSH QSHIFT [facility] Last Admin: 03/30/23 10:29 Dose: 3 ml Documented By: RADHA Labs 03/30/23 06:08 03/30/23 06:07 Labs: Laboratory Results - last 24 hr 03/29/23 03/29/23 03/30/23 18:10 21:56 00:02 MCV 103.8 H MCH 34.4 H MCHC 33.1 RDW 14.6 Plt Count 233 MPV 8.8 L Immature Gran % (Auto) 0.6 H Neut % (Auto) 87.1 H Lymph % (Auto) 4.7 L Granite % (Auto) 7.3 Eos % (Auto) 0.1 Baso % (Auto) 0.2 Lymph # (Auto) 0.8 L Granite # (Auto) 1.2 Eos # (Auto) 0.0 Baso # (Auto) 0.0 Abs Immat Gran (auto) 0.10 H Absolute Neuts (auto) 14.6 H Absolute Nucleated RBC 0.000 Nucleated RBC % (auto) 0.0 Anion Gap 13 Estim Creat Clear Calc 35.4 Estimated GFR 51 Random Glucose 129 H Lactic Acid 2.1 H* Lactic Acid F/U @ 2Hr 1.6 Calcium 9.5 Total Bilirubin 0.4 AST 15 ALT 14 Alkaline Phosphatase 102 Total Protein 6.9 Albumin 3.4 L Lipase 31 Urine Color Yellow Urine Appearance Clear Urine pH 5.5 Ur Specific [place] 1.025 Urine Protein 100 (2+) H Urine Glucose (UA) 100 H Urine Ketones Negative Urine Blood Small (1+) H Urine Nitrite Negative Ur Leukocyte Esterase Trace H Urine RBC 3-5 H Urine WBC 11-20 H Ur Squamous Epith Cells 3-5 Urine Bacteria None Seen Hyaline Casts 3-5 Granular Casts Present 03/30/23 03/30/23 06:07 06:08 MCV 102.3 H MCH 33.6 H MCHC 32.9 RDW 14.4 Plt Count 183 MPV 9.4 Immature Gran % (Auto) 0.6 H Neut % (Auto) 86.6 H Lymph % (Auto) 5.8 L Granite % (Auto) 6.7 Eos % (Auto) 0.1 Baso % (Auto) 0.2 Lymph # (Auto) 0.7 L Granite # (Auto) 0.8 Eos # (Auto) 0.0 Baso # (Auto) 0.0 Abs Immat Gran (auto) 0.07 H Absolute Neuts (auto) 9.8 H Absolute Nucleated RBC 0.000 Nucleated RBC % (auto) 0.0 Anion Gap 10 L Estim Creat Clear Calc 49.0 Estimated GFR > 60 Random Glucose 129 H Lactic Acid Lactic Acid F/U @ 2Hr Calcium 8.7 D Total Bilirubin AST ALT Alkaline Phosphatase Total Protein Albumin Lipase Urine Color Urine Appearance Urine pH Ur Specific [place] Urine Protein Urine Glucose (UA) Urine Ketones Urine Blood Urine Nitrite Ur Leukocyte Esterase Urine RBC Urine WBC Ur Squamous Epith Cells Urine Bacteria Hyaline Casts Granular Casts Assessment and Plan (1) Bacteremia due to Gram-negative bacteria: Status: Acute Plan For 82-year-old female with past medical history of hypertension, polycythemia vera among others who was seen in the ED on 03/28 after a fall and found to have UTI and was called to return after blood cultures turned positive. GNR bacteremia likely secondary to UTI continue IV ceftriaxone follow final cultures UTI urine culture growing e.coi sensitive to ceftriaxone continue IV ceftraixone, started 03/29 hypertension bp elevated, due to missing meds will resume lisinopril and metoprolol cardiac enzymes elevated no chest pain abnormal EKG, but seems similar to previous cardiology consult anxiety continue lorazepam polycythemia vera continue hydroxyurea hypothyroidism continue levothyroxine HLD continue statin Patient is on digoxin and metoprolol but unsure why seen by PT - rec to return home to resume outpatient PT DVT prophylaxis: Heparin subQ attending - dr. chun Given need for IV antibiotics in the setting of bacteremia patient require minimum 2 night inpatient hospital stay for further management and monitoring Time Spent With Patient Time: Total time managing care of this patient today ____ minutes. Quality Stroke Does the patient have a stroke diagnosis?: No VTE Prior VTE?: No VTE Risk Level:: Medical - moderate - high VTE Device Contraindication: Treatment Not Indicated VTE Drug Contraindication: N/A - Med Ordered
--- NOTE | 2023-03-30 14:37 | MHC.CM.PN ---
IMM 03/30: Lives in 2-level home alone. Has a cleaning lady a few times per week, no other services. Owns a rollator. Has access to a first floor full bathroom, however bedroom is on second floor. Still drives. Per conversation w/primary contact, Pt has been functionally failing for several weeks/months at home D/T newly identified herniated disk in her back causing excruciating pain and imobility. D/C plan is home w/services VS SNF for STR. CM to follow.
[2023-03-30] MEDS: cefTRIAXone sodium 1 GM in 0.9 % Sodium Chloride 50 ML IV (19:44)
[2023-03-30] MEDS: hydrALAZINE HCl 20 MG/ML VIAL 5 MG IVPUSH (21:23)
[2023-03-31] VITALS (8 sets, daily range): BP systolic 147–192; BP diastolic 71–90; PULSE 70–84; RESP 16–18; TEMP 36.1–36.8; O2SAT 96–97
[2023-03-31] MEDS: Levothyroxine Sodium 75 MCG TABLET PO (05:19)
[2023-03-31 05:36] LABS: Hemoglobin 11.9 g/dl (12.0-16.0); Mean Corpuscular Hemoglobin 34.5 pg (27.0-33.0); Mean Corpuscular Volume 101.4 fL (80.0-98.0); Mean Platelet Volume 9.4 fL (9.4-12.3); Platelet Count 178 X10*3/uL (160-400); Red Blood Count 3.45 X10*6/uL (4.20-5.50); Red Cell Distribution Width 14.2 % (11.0-16.0); White Blood Count 8.1 X10*3/uL (4.8-10.8)
[2023-03-31 05:51] LABS: Anion Gap 9 (12-20); Blood Urea Nitrogen 10 mg/dL (9-16); Calcium 8.8 mg/dL (8.4-10.2); Carbon Dioxide 21 mmol/L (22-29); Chloride 108 mmol/L (96-108); Creatinine Clr Calc Pharmacy 57.2; Estimated Glomerular Filt Rate > 60; Glucose Random 95 mg/dL (60-115); Potassium 3.7 mmol/L (3.3-5.1); Sodium 134 mmol/L (135-145)
[2023-03-31] MEDS: Digoxin 0.125 MG TABLET PO (08:02)
[2023-03-31] MEDS: Hydroxyurea 500 MG CAPSULE 1000 MG PO (08:03)
[2023-03-31] MEDS: Metoprolol Tartrate 50 MG TABLET PO ×2 (08:03→19:54)
[2023-03-31] MEDS: lisinopriL 10 MG TABLET PO (08:03)
[2023-03-31] MEDS: 0.9 % Sodium Chloride Flush 3 ML SYRINGE IVFLUSH ×3 (08:05→19:54)
--- NOTE | 2023-03-31 12:12 | P.CONCA_ITS ---
History of Present Illness History of Present Illness Date of Service: 03/31/23 Requesting physician: Landy Arora Consult reason: troponin elevation Chief complaint: UTI, bacteremia Narrative: I was consulted to see Dee in cardiology consultation today for abnormal troponin. Patient 82-year-old female with prior history of anxiety, hypertension, polycythemia, hyperlipidemia. She denies any cardiac symptoms although she is on digoxin at home for unclear reason. She came to the emergency room initially because she fell down on while stepping over the curb of her home and was not able to get up. She was subsequently brought to the emergency room by paramedics. She had worked up in the emergency room at that time and felt that everything was okay except for that she had UTI. She was then sent home higher was called back to the emergency room because of blood cultures were positive for Gram-negative bacteremia. She came to the hospital was noted to have mild lactic acidosis with positive UTI. Started on IV antibiotics and fluids. Lactic acid has improved. Troponin was drawn for unclear reasons she did not have any cardiac symptoms. Troponin of flat at a and in 80s. EKG did not show acute ST T wave changes suggestive ischemia. Review of Systems 2 Constitutional: Constitutional: Denies body ache(s), Denies chills, Denies fever(s) and Reports weakness Eyes: Eyes: Reports no additional eye complaints Cardiovascular: Cardiovascular: Reports no additional cardiovascular complaints Respiratory: Respiratory: Reports no additional respiratory complaints Gastrointestinal: Gastrointestinal: Reports no additional gastrointestinal complaints Genitourinary: Genitourinary: Reports no additional female genitourinary complaints Musculoskeletal: Musculoskeletal: Reports no additional musculoskeletal complaints Integumentary/Breasts: Skin/Breast: Reports system reviewed and no additional complaints, except as docu Neurologic: Reports system reviewed and no additional complaints, except as documented and Reports weakness Psychiatric: Psychiatric: Reports no additional psychiatric complaints Endocrine: Endocrine: Reports no additional endocrine complaints Hematologic/Lymphatic: Hematologic/Lymphatic: Reports no additional hematologic/lymphatic complaints Allergic/Immunologic: Allergic/Immunologic: Reports no additional allergic/immunologic complaints PMFSH Past Medical History Medical History Hypothyroidism Polycythemia Hyperlipidemia Hypertension Surgical History Surgical History No pertinent past surgical history Social History Social History Household Members: None Housing: House Do you presently have visiting nurse or other home services: No Alcohol intake: current Alcohol intake frequency: does not drink Patient Tobacco Use Status: Never used Tobacco Second Hand Smoke Exposure: No service: No Meds Allergies Allergy/AdvReac Type Severity Reaction Status Date / Time No Known Allergies Allergy Verified 03/28/23 19:28 Active Medications: Current Medications Acetaminophen (Acetaminophen 325 Mg Tablet) 650 mg PO Q6H PRN PRN Reason: Pain, Mild (Pain Scale 1-3) Digoxin (Digoxin 0.125 Mg Tablet) 0.125 mg PO DAILY [facility] Last Admin: 03/31/23 08:02 Dose: 0.125 mg Heparin Sodium (Porcine) (Heparin Sodium,Porcine 5,000 Unit/Ml Vial) 5,000 unit SUBCUT Q12H [facility] Last Admin: 03/30/23 23:13 Dose: 5,000 unit Hydroxyurea (Hydroxyurea 500 Mg Capsule) 500 mg PO MOTUWETHFR@0900 [facility] Hydroxyurea (Hydroxyurea 500 Mg Capsule) 1,000 mg PO SUSA@0900 [facility] Last Admin: 03/31/23 08:03 Dose: 1,000 mg Ceftriaxone Sodium 1 gm/ (Sodium Chloride) 50 mls @ 100 mls/hr IV Q24H [facility] Last Infusion: 03/30/23 20:48 Dose: Infused Levothyroxine Sodium (Levothyroxine Sodium 75 Mcg Tablet) 75 mcg PO DAILY@0600 [facility] Last Admin: 03/31/23 05:19 Dose: 75 mcg Lisinopril (Lisinopril 10 Mg Tablet) 10 mg PO DAILY [facility]; Protocol Last Admin: 03/31/23 08:03 Dose: 10 mg Lorazepam (Lorazepam 0.5 Mg Tablet) 0.5 mg PO BID PRN PRN Reason: Anxiety Metoprolol Tartrate (Metoprolol Tartrate 50 Mg Tablet) 50 mg PO BID [facility]; Protocol Last Admin: 03/31/23 08:03 Dose: 50 mg Ondansetron HCl (Ondansetron Hcl 4 Mg/2 Ml Vial) 4 mg IVPUSH Q8H PRN PRN Reason: Nausea and Vomiting Pravastatin Sodium (Pravastatin Sodium 10 Mg Tablet) 10 mg PO BEDTIME [facility] Sodium Chloride (0.9 % Sodium Chloride Flush 3 Ml Syringe) 3 ml IVFLUSH QSHIFT [facility] Last Admin: 03/31/23 08:05 Dose: 3 ml Home Medications Medication Instructions Recorded Confirmed Last Taken Type digoxin 125 mcg (0.125 mg) tablet 125 mcg PO DAILY 03/30/23 03/30/23 Unknown History hydroxyurea 500 mg capsule 1,000 mg PO SUSA@89903/30/23 03/30/23 Unknown History hydroxyurea 500 mg capsule 500 mg PO MOTUWETHFR@89903/30/23 03/30/23 Unknown History levothyroxine 75 mcg tablet 75 mcg PO DAILY@59903/30/23 03/30/23 Unknown History lisinopril 10 mg tablet 10 mg PO DAILY 03/30/23 03/30/23 Unknown History lorazepam 0.5 mg tablet 0.5 mg PO BID PRN Anxiety 03/30/23 03/30/23 Unknown History lovastatin 10 mg tablet 10 mg PO DAILY 03/30/23 03/30/23 Unknown History metoprolol tartrate 100 mg tablet 50 mg PO BID 03/30/23 03/30/23 Unknown History Physical Exam 2 Vital Signs: Vital Signs: Last Vital Signs Temp 97.5 F 03/31/23 07:25 Pulse 70 03/31/23 07:25 Resp 16 03/31/23 07:25 BP 185/86 H 03/31/23 07:25 Pulse Ox 97 03/31/23 07:25 O2 Del Method Room Air 03/31/23 07:25 BMI result Body Mass Index 25.3 Const: General: cooperative, comfortable, no acute distress, alert, awake and anxious Nutritional Appearance: average body habitus O rientation/consciousness: patient oriented x3 Limitations: no limitations HEENT: Head: Yes normocephalic and Yes atraumatic Neck: Neck: Yes trachea midline, Yes supple and Yes no JVD Resp: Effort & Inspection: normal respiratory effort Auscultation: clear to auscultation bilaterally Cardio: Jugular venous distension: no JVD Palpation: normal PMI Rate: r egular rate Rhythm: regular rhythm Heart sounds: S1 normal heart sound present, S2 normal heart sound present, no click, no gallops, no murmurs and no rubs Skin: General skin exam: no rashes or lesions noted Neuro: General: patient oriented x3 and no focal motor deficits Extrem: General: Yes no clubbing, cyanosis or edema Psych: Affect: Anxious affect present Objective Labs and Meds 03/31/23 05:24 03/31/23 05:24 Lab results: Laboratory Results - last 24 hr 03/31/23 05:24 WBC 8.1 RBC 3.45 L Hgb 11.9 L Hct 35.0 L MCV 101.4 H MCH 34.5 H MCHC 34.0 RDW 14.2 Plt Count 178 MPV 9.4 Absolute Nucleated RBC 0.000 Nucleated RBC % (auto) 0.0 Sodium 134 L Potassium 3.7 Chloride 108 Carbon Dioxide 21 L Anion Gap 9 L BUN 10 Creatinine 0.70 Estim Creat Clear Calc 57.2 Estimated GFR > 60 Random Glucose 95 Calcium 8.8 EKG shows normal sinus rhythm with nonspecific ST changes Assessment and Plan (1) Troponin level elevated: Status: Acute Troponin elevation this elderly woman admitted with sepsis with multiple risk factors without any ischemic symptoms or EKG changes. This is most suggestive of myocardial necrosis related to sepsis. Unlikely represents myocardial infarction. Continue aggressive risk factor modification. Blood pressure is very elevated could be due to being in hospital and white coat hypertension. Would add Norvasc 5 mg to regimen. Continue other therapy. Low-dose aspirin statins advised. Consider echocardiogram to evaluate for LV function and regional wall motion abnormality. Given her multiple risk factors and prior abnormal EKG few years ago would suggest a myocardial perfusion imaging as outpatient. No indication for IV heparin Will sign of the case and follow with her as outpatient. Time Spent With Patient Time: Total time managing care of this patient today ____ minutes. Procedures Date of Service Date of Service: 03/31/23
[2023-03-31] MEDS: Heparin Sodium,Porcine 5,000 UNIT/ML VIAL 5000 UNIT SUBCUT ×2 (12:22→22:45)
--- NOTE | 2023-03-31 14:54 | HO.PM.IMPN ---
Subjective Subjective Date of Service: 03/31/23 Interval History: seen and examined this morning follow up for bacteremia/UTI feeling well no chest pain, sob,fever or chills Review of Systems Review of Systems: Yes all other systems are reviewed and are negative Constitutional Constitutional: Denies chills and Denies fever(s) Cardiovascular Cardiovascular: Denies chest pain and Denies dyspnea Respiratory Respiratory: Denies dyspnea Gastrointestinal Gastrointestinal: Denies abdominal pain Physical Exam Vital Signs: Vital Signs: Last Vital Signs Temp 97.5 F 03/31/23 07:25 Pulse 70 03/31/23 07:25 Resp 16 03/31/23 07:25 BP 185/86 H 03/31/23 07:25 Pulse Ox 97 03/31/23 07:25 O2 Del Method Room Air 03/31/23 07:25 BMI result Body Mass Index 25.3 Const: General: cooperative, comfortable, no acute distress, alert and awake Nutritional Appearance: average body habitus Orientation/consciousness: patient oriented x3 Resp: Effort & Inspection: normal respiratory effort, able to speak in complete sentences, no respiratory distress and no use of accessory muscles Cardio: Rate: regular rate GI: Inspection: No distended Palpation (GI): Soft to palpation and nontender Neuro: General: patient oriented x3, moves all extremities and CN's II-XI intact bilaterally Extrem: General: Yes no pedal edema Objective Data Active Medications Acetaminophen (Acetaminophen 325 Mg Tablet) 650 mg PO Q6H PRN PRN Reason: Pain, Mild (Pain Scale 1-3) Digoxin (Digoxin 0.125 Mg Tablet) 0.125 mg PO DAILY [facility] Last Admin: 03/31/23 08:02 Dose: 0.125 mg Documented By: COTEMA Heparin Sodium (Porcine) (Heparin Sodium,Porcine 5,000 Unit/Ml Vial) 5,000 unit SUBCUT Q12H [facility] Last Admin: 03/31/23 12:22 Dose: 5,000 unit Documented By: COTEMA Hydroxyurea (Hydroxyurea 500 Mg Capsule) 500 mg PO MOTUWETHFR@0900 [facility] Hydroxyurea (Hydroxyurea 500 Mg Capsule) 1,000 mg PO SUSA@0900 [facility] Last Admin: 03/31/23 08:03 Dose: 1,000 mg Documented By: COTEMA Ceftriaxone Sodium 1 gm/ (Sodium Chloride) 50 mls @ 100 mls/hr IV Q24H [facility] Last Infusion: 03/30/23 20:48 Dose: Infused Documented By: SHAINA Levothyroxine Sodium (Levothyroxine Sodium 75 Mcg Tablet) 75 mcg PO DAILY@0600 [facility] Last Admin: 03/31/23 05:19 Dose: 75 mcg Documented By: SHAINA Lisinopril (Lisinopril 10 Mg Tablet) 10 mg PO DAILY [facility]; Protocol Last Admin: 03/31/23 08:03 Dose: 10 mg Documented By: MICHELLE Lorazepam (Lorazepam 0.5 Mg Tablet) 0.5 mg PO BID PRN PRN Reason: Anxiety Metoprolol Tartrate (Metoprolol Tartrate 50 Mg Tablet) 50 mg PO BID [facility]; Protocol Last Admin: 03/31/23 08:03 Dose: 50 mg Documented By: MICHELLE Ondansetron HCl (Ondansetron Hcl 4 Mg/2 Ml Vial) 4 mg IVPUSH Q8H PRN PRN Reason: Nausea and Vomiting Pravastatin Sodium (Pravastatin Sodium 10 Mg Tablet) 10 mg PO BEDTIME [facility] Sodium Chloride (0.9 % Sodium Chloride Flush 3 Ml Syringe) 3 ml IVFLUSH QSHIFT [facility] Last Admin: 03/31/23 08:05 Dose: 3 ml Documented By: MICHELLE Labs 03/31/23 05:24 03/31/23 05:24 Labs: Laboratory Results - last 24 hr 03/31/23 05:24 MCV 101.4 H MCH 34.5 H MCHC 34.0 RDW 14.2 Plt Count 178 MPV 9.4 Absolute Nucleated RBC 0.000 Nucleated RBC % (auto) 0.0 Anion Gap 9 L Estim Creat Clear Calc 57.2 Estimated GFR > 60 Random Glucose 95 Calcium 8.8 Microbiology Microbiology Results: Microbiology 03/29/23 18:28 Blood Culture - Preliminary Blood - Venous No growth after 24 hours. 03/29/23 18:10 Blood Culture - Preliminary Blood - Venous No growth after 24 hours. Assessment and Plan (1) Troponin level elevated: Status: Acute (2) Bacteremia due to Gram-negative bacteria: Status: Acute (3) Uncontrolled hypertension: Status: Acute Plan For 82-year-old female with past medical history of hypertension, polycythemia vera among others who was seen in the ED on 03/28 after a fall and found to have UTI and was called to return after blood cultures turned positive. E.coli bacteremia/UTI cultures growing e.coli sensitive to ceftriaxone started on ceftriaxone 03/30, plan to discharge with 14 days po ceftin hypertension, uncontrolled continue lisinopril and metoprolol will add norvasc 5 mg elevated cardiac enzymes no chest pain abnormal EKG, but seems similar to previous likely type 2 secondary to undrlying infection seen by cardiology - rec echo and then likely outpatient stress test anxiety continue lorazepam polycythemia vera continue hydroxyurea hypothyroidism continue levothyroxine HLD continue statin h/o atrial tachycardia continue digoxin and metoprolol seen by PT - rec to return home to resume outpatient PT (goes to PT for pain r/t compression fracture) DVT prophylaxis: Heparin subQ attending - dr. trejo Given need for IV antibiotics in the setting of bacteremia patient require minimum 2 night inpatient hospital stay for further management and monitoring Time Spent With Patient Time: Total time managing care of this patient today ____ minutes. Quality Stroke Does the patient have a stroke diagnosis?: No VTE Prior VTE?: No VTE Risk Level:: Medical - moderate - high VTE Device Contraindication: Treatment Not Indicated VTE Drug Contraindication: N/A - Med Ordered
[2023-03-31] MEDS: amLODIPine Besylate 5 MG TABLET PO (15:40)
[2023-03-31] MEDS: hydrALAZINE HCl 20 MG/ML VIAL 5 MG IVPUSH (17:43)
[2023-03-31] MEDS: cefTRIAXone sodium 1 GM in 0.9 % Sodium Chloride 50 ML IV (19:54)
[2023-03-31] MEDS: Pravastatin Sodium 10 MG TABLET PO (19:54)
[2023-04-01 03:21] VITALS: BP 142/82
[2023-04-01] MEDS: Levothyroxine Sodium 75 MCG TABLET PO (05:45)
--- NOTE | 2023-04-01 07:00 | CA_ITS ---
Transthoracic Echocardiogram Patient (Last, First, Middle): Dee Alberts, Gender: Female Date of : 1940 Age: 82 Procedure Date: 04/01/2023 Procedure Type: Transthoracic Echocardiogram Location: [facility] [place] Height: 162.56 cm Weight: 66.68 kg BSA: 1.72 m2 Heart Rate: 64 bpm BP: 150 / 90 mmHg Special Trackwork Blacksmith: ZECHARIAH Referring MD: Landy FUENTES Symptoms: elevated cardiac enzymes, high blood pressure Study Quality: Adequate ECG Rhythm: Sinus Conclusions: - The left ventricular systolic function is hyperdynamic. The visually estimated ejection fraction is >70%. - Moderate to severe concentric left ventricular hypertrophy. - No obvious valvular pathology seen on this study. Findings Left Ventricle Normal left ventricular cavity size. The left ventricular systolic function is hyperdynamic. The visually estimated ejection fraction is >70%. There is no evidence of regional wall motion abnormalities. Diastolic function is normal for age. Moderate to severe concentric left ventricular hypertrophy. Right Ventricle Normal right ventricular cavity size and systolic function. Atria The left atrium is likely dilated. The right atrium is normal in size. Aortic Valve There is a normal trileaflet aortic valve. There is mild calcification of the aortic valve. There is no aortic valve stenosis. There is trace (trivial) aortic valve regurgitation. Mitral Valve The mitral valve appears normal. There is trace mitral valve regurgitation. There is no mitral valve stenosis. Pulmonic Valve The pulmonic valve is likely normal. Tricuspid Valve Normal tricuspid valve structure. There is mild tricuspid valve regurgitation. There is no evidence of pulmonary hypertension. Great Vessels The asc aorta is normal in size. Venous The inferior vena cava is normal in size and collapses greater than 50% with inspiration. Pericardium/Pleural There is no evidence of pericardial effusion. Prior Study Comparison No prior study available for comparison. Recommendations, Care & Conclusions No obvious valvular pathology seen on this study. Measurements 2D Linear Measurements IVSd: 1.72 0.6-0.9/0.6-1.0 cm LVIDd: 3.67 3.9-5.3/4.2-5.9 cm LVIDd Index: 2.13 2.4-3.2/2.2-3.1 cm/m2 LVIDs: 2.29 2.0-3.6 cm LVPWd: 1.43 0.7-1.1 cm LA Diam: 2.90 2.7-3.8/3.0-4.0 cm LAIDs Index: 1.69 1.5-2.3 cm/m2 LV Mass: 278.50 67-162/88-224 g LV Mass Index: 161.92 43-95/49-115 g/m2 LVOT Diam: 1.70 3.0+(-)1.3 cm 2D Systolic Function EF 4C: 67.40 >55% EF 2C: 67.00 >55% EF BiP: 67.00 >55% Mitral Valve MV Pk E: 0.61 MV PK A: 0.88 MV Decel Time: 242.00 E/A: 0.70 E'Lateral: 8.49 E'Medial: 6.85 E/E' Med: 8.90 E/E' Lat: 7.20 PHT: 71.00 MVA PHT: 3.10 Decel Harding: 2.52 Aortic Valve AoV Pk Robert: 1.79 AoV Mn Robert: 1.22 AoV VTI: 0.38 AoV Pk Grad: 13.00 Aov Mn Grad: 7.00 RANJIT Cont.VTI: 2.10 AI Pk Robert: 4.82 AI Harding: 2.11 LVOT LVOT Pk Robert: 1.61 LVOT Mn Robert: 1.12 LVOT VTI: 0.35 LVOT Pk Grad: 10.00 LVOT Mn Grad: 6.00 LVOT Diam: 1.70 LVOT Area: 2.27 Diastolic Function MV Pk E: 0.61 MV Pk A: 0.88 E/A: 0.70 E'Medial: 6.85 E/E' Med: 8.90 E' Laterial: 8.49 E/E' Lat: 7.20 Right Ventricle TAPSE (mm): 21.10 TVS' Robert: 12.90 Tricuspid Valve TR Pk Robert: 2.41 TR Pk Grad: 23.00 RA Press: 3.00 RVSP: 26.00 Great Vessels Aorta Sinus of Valsalva: 3.00 2.0-3.5 cm Ao Asc: 3.50 2.1-3.4 cm Pulmonary Valve PV Pk Robert: 0.90 Peak PV Grad: 3.00 Updated in Other Vendor System with Status of Final Remberto Grullon MD electronically signed on 04/01/2023 12:05:28 PM with status of Final
[2023-04-01 07:22] VITALS: BP 150/90; PULSE 70; RESP 16; TEMP 36.2; O2SAT 96
[2023-04-01] MEDS: Digoxin 0.125 MG TABLET PO (08:37)
[2023-04-01] MEDS: lisinopriL 10 MG TABLET PO (08:37)
[2023-04-01] MEDS: amLODIPine Besylate 5 MG TABLET PO (08:37)
[2023-04-01] MEDS: Metoprolol Tartrate 50 MG TABLET PO (08:37)
[2023-04-01] MEDS: Hydroxyurea 500 MG CAPSULE PO (08:38)
[2023-04-01] MEDS: 0.9 % Sodium Chloride Flush 3 ML SYRINGE IVFLUSH (08:46)
[2023-04-01] MEDS: Heparin Sodium,Porcine 5,000 UNIT/ML VIAL 5000 UNIT SUBCUT (12:10)
--- NOTE | 2023-04-01 14:49 | PM.DS ---
DS: Providers Provider Date of Service: 04/01/23 Date of admission: 03/29/23 23:27 Primary care physician: Yen Ruffin MD Consults: 03/30/23 14:13 Consult to Cardiology Routine Consulting Provider: [facility] [place] Cardiovascular Services Reason for consultation: elevated cardiac enzymes Has provider been notified: No DS: Diagnosis Discharge Diagnosis (1) Troponin level elevated: Status: Acute (2) Bacteremia due to Gram-negative bacteria: Status: Acute (3) Uncontrolled hypertension: Status: Acute DS: Summary Hospital Course Hospital Course: History and physical as per admitting provider. This is a an 82-year-old female past medical history of hypothyroidism, hypertension, polycythemia, anxiety, hyperlipidemia, comes into the hospital after she received a call from the ED with positive blood cultures. Patient was seen in the hospital on 03 29 for urinary symptoms that she was complaining of urinary frequency, dysuria, was diagnosed with the UTI, started on p.o. antibiotics and sent home. Patient reports that she has had progressive weakness, denies any chest pain, shortness of breath, no abdominal pain nausea vomiting, no diarrhea constipation, no lower extremity edema. Denies any fever but has chills. On arrival to the ED patient hemodynamically stable Labs are significant for WBC count of 16.8, sodium 134, lactic acid of 2.1, UA remains positive for leukocyte Estrace WBC Patient's blood culture showing Gram-negative rods prelim Patient will be admitted for further management A 2-year-old woman treated for E coli bacteremia and E coli UTI. Started on IV ceftriaxone. Will complete a total of 14 days of Ceftin. She was also noted to have elevated troponin and was seen evaluated by Cardiology. Echocardiogram showed EF of 70%, hyperdynamic with no wall motion abnormalities. Cardiology suggested outpatient stress test, no indication for IV heparin. She also had some episodes of elevated blood pressure and was treated with lisinopril, metoprolol and Norvasc 5 mg added. Plan is to discharge patient home with physical therapy. Anxiety. Continue medications Polycythemia vera. Continue hydroxyurea Hypothyroidism. Continue levothyroxine Hyperlipidemia. Continue statin History of atrial tachycardia. Continue digoxin metoprolol Time Spent with Patient Time attestation: Total time managing care of this patient today ____ minutes. Discharge coordination time: Greater than 30 minutes Quality: Safe Use of Opioids Does Pt have an Active Cancer Diagnosis on the Problem List?: No Quality: Stroke Does the patient have a stroke diagnosis?: No Physical Exam Vital Signs: Vital Signs: Last Vital Signs Temp 97.1 F 04/01/23 07:22 Pulse 70 04/01/23 07:22 Resp 16 04/01/23 07:22 BP 150/90 H 04/01/23 07:22 Pulse Ox 96 04/01/23 07:22 O2 Del Method Room Air 04/01/23 07:22 BMI result Body Mass Index 25.3 Appearing in no acute distress head is normocephalic atraumatic eyes pupils are PERRLA sclera is anicteric mouth throat mucous membranes are intact and moist neck is supple no lymphadenopathy, no JVD noted lung sounds are clear to auscultation heart regular rate rhythm, clear S1, S2 positive bowel sounds, abdomen is soft, nontender neuro patient is alert x3, no focal deficits DS: Data Data Completed and Pending Labs on day of discharge: Preliminary micro results at discharge 03/29/23 18:28 Blood Culture - Preliminary Blood - Venous No growth after 48 hours. 03/29/23 18:10 Blood Culture - Preliminary Blood - Venous No growth after 48 hours. Discharge Plan Discharge Anticipated Discharge Date/Time: 04/01/23 14:40 Patient Disposition: Home Health Service Discharge Diagnosis: E coli bacteremia UTI Elevated troponin Referrals: Yen Ruffin MD [Primary Care Provider] - [address] Graham MD [Physician] - 1 Week Discharge Medications: New amlodipine 5 mg Tablet 5 mg PO DAILY Qty: 30 0RF Protocol: Hold for SBP< HOLD for SBP < : 90 aspirin 81 mg tablet,chewable 81 mg PO DAILY Qty: 30 0RF cefuroxime axetil 500 mg tablet 500 mg PO BID Qty: 28 0RF Continued hydroxyurea 500 mg capsule 500 mg PO MOTUWETHFR@0900 metoprolol tartrate 100 mg tablet 50 mg PO BID lovastatin 10 mg tablet 10 mg PO DAILY levothyroxine 75 mcg tablet 75 mcg PO DAILY@0600 lorazepam 0.5 mg tablet 0.5 mg PO BID PRN (Reason: Anxiety) lisinopril 10 mg tablet 10 mg PO DAILY digoxin 125 mcg (0.125 mg) tablet 125 mcg PO DAILY hydroxyurea 500 mg capsule 1,000 mg PO SUSA@0900 Discontinued cefdinir 300 mg capsule 300 mg PO BID 5 Days Qty: 10 0RF Discharge Orders: Discharge Order (Routine); Ordered 04/01/23 Ordered By: Veronika Mercado Diet: Advance to usual diet Activity on Discharge: As tolerated Stand Alone Forms: Patient Portal Discharge page Care Plan Goals: Complete resolution of symptoms Health Concerns: E coli bacteremia UTI Elevated troponin Plan of Treatment: Take all medications as prescribed Follow-up with primary care provider as needed Follow-up with Cardiology for outpatient stress test Assessment: See discharge summary
--- NOTE | 2023-04-01 15:54 | W.MHC.F2F ---
Service Date Service Date: 04/01/23 Encounter Date of encounter: 04/01/23 Reasons for Services Signs and symptoms assessed: Bacteremia UTI Reason for physical therapy: home safety and mobility Homebound: Leaving the home is medically contraindicated at this time without the asist of a device and/or another person due th the listed conditions above and below. Reason homebound: unsteady gait / fall risk Certification: Based on the above findings, I certify that this patient is confined to the home and needs intermittent fci care, physical therapy and/or speech therapy, or continues to need occupational therapy. The patient is under my care, and I have initiated the establishment of the plan of care. The patient will be followed by a physician who will periodically review the plan of care. Time Spent With Patient Time: Total time managing care of this patient today ____ minutes.
== END 2023-04-01 16:15 | disposition home health service (06) | DRG 690 ==
LOC: HO.ED 23:28 → HO.EDOVER 23:37 → HO.S3 03-30 12:50
PROVIDERS: Physician Assistant; Physician Assistant Medical; Admitting Provider Internal Medicine; Emergency Provider Emergency Medicine; PCP Family Medicine; Visit Provider Nurse Practitioner Acute Care
DX: N39.0 Urinary tract infection, site not specified (principal); R78.81 Bacteremia; E78.5 Hyperlipidemia, unspecified; I10 Essential (primary) hypertension; B96.20 Unspecified Escherichia coli [E. coli] as the cause of diseases classified elsewhere; D45 Polycythemia vera; E03.9 Hypothyroidism, unspecified; F41.9 Anxiety disorder, unspecified; Z79.82 Long term (current) use of aspirin; Z79.890 Hormone replacement therapy; Z79.899 Other long term (current) drug therapy
CPT/HCPCS: 36415; 80048; 80053; 81001; 83605; 83690; 85025; 85027; 87040; 93005; 93306; 97162; 99285; J0696; J1643; Q9957

== ENCOUNTER 2023-03-29 23:27 | Outpatient (BNV) | payer MEDICARE, SELFPAY | END 2023-04-01 07:00 | PROVIDERS: Admitting Provider Internal Medicine; Emergency Provider Emergency Medicine; PCP Family Medicine; Visit Provider Internal Medicine | DX: I36.1 Nonrheumatic tricuspid (valve) insufficiency (principal); I35.8 Other nonrheumatic aortic valve disorders | CPT/HCPCS: 93306 ==

== ENCOUNTER → 2023-03-29 23:27 | Outpatient (BNV) | payer MEDICARE, SELFPAY | PROVIDERS: Admitting Provider Internal Medicine; Emergency Provider Emergency Medicine; PCP Family Medicine; Visit Provider Internal Medicine | DX: R77.8 Other specified abnormalities of plasma proteins (principal); R78.81 Bacteremia; I10 Essential (primary) hypertension | CPT/HCPCS: 99223; 99232; 99239; 99499; G0180 ==

== ENCOUNTER → 2023-03-29 23:27 | Outpatient (BNV) | payer MEDICARE, SELFPAY | PROVIDERS: Admitting Provider Internal Medicine; Emergency Provider Emergency Medicine; PCP Family Medicine; Visit Provider Internal Medicine Cardiovascular Disease | DX: R77.8 Other specified abnormalities of plasma proteins (principal) | CPT/HCPCS: 99222 ==

== ENCOUNTER → 2023-05-23 09:44 | Outpatient (REF) | payer MEDICARE, SELFPAY ==
--- NOTE | ~2023-05-23 | NM_ITS ---
Myocardial perfusion study Indication: Elevated troponins with risk factors to evaluate for myocardial ischemia Technique: The patient was brought in for a Lexiscan perfusion study on 05/23/2023. Patient performed low-level exercise and was injected 0.4 mg of Lexiscan intravenously. Within a minute of injection, 25 mCi of sestamibi was given intravenously. Images were obtained using the SPECT gamma camera interlaced with the gating device. Images were obtained in supine position. Resting perfusion study was performed on 05/24/2023. Patient was administered 25 mCi of sestamibi intravenously at rest. Images were then obtained in supine position. Images obtained with and without CT attenuation. Total DLP 66 mGy-cm. Images were processed with the software and compared side to side in short axis, horizontal long axis and vertical long axis views. Findings: The stress perfusion study showed non attenuated images show normal uptake of radiotracer in all segments of LV myocardium. Attenuation corrected images show minimally reduced uptake in the apex of the LV myocardium.. The gated study shows normal LV systolic function with calculated LVEF of 65%. LV cavity is normal in size. The gated study shows normal systolic wall thickening and contraction of segments. Resting study shows non attenuated images show truncated basal inferior wall otherwise normal uptake of radiotracer in all segments of LV myocardium. Gating at rest reveals normal systolic wall motion with ejection fraction at 63%. The findings are consistent with normal myocardial perfusion. NM/NM klever perf SPECT rest & str Impression: 1. Myocardial perfusion imaging study shows normal myocardial perfusion 2. Gated LVEF is 65% 3. Transient ischemic dilatation not present EKG is nondiagnostic for ischemia
--- NOTE | 2023-05-23 09:48 | CA_ITS ---
Acquisition Time: 2023-05-23 10:10:19 Total Exercise Time: 00:02:01 Test Indications: HTN Medications: Amlodipine Aspirin Cefuroxime Hydroxyurea Metoprolol Lovastatin Levothyroxine Lorazepam Lisinopril Digoxin Protocol: BENJAMIN Max HR: 075 BPM 54% of Pred: 137 BPM Max BP: 104/064 mmHG Max Work Load: 1.0 METS Pharmacological stress test with Lexiscan injection while sitting and marching in place, without anginal symptoms, without arrhythmias, with normotensive response to injection, with nondiagnositic EKGs.Aminiophylline 75mg IVp given to reverse Lexiscan. Nuclear images pending. Test reviewed with Dr. Flores. Referred By: Lane Graham Overread By: Deidra Leroy
== END ==
LOC: HO.CARD 09:44
PROVIDERS: PCP Family Medicine; Visit Provider Internal Medicine Cardiovascular Disease
DX: I10 Essential (primary) hypertension (principal); R77.8 Other specified abnormalities of plasma proteins; R53.1 Weakness
CPT/HCPCS: 78452; 93017; A9500; J0280; J2785

== ENCOUNTER → 2023-05-23 09:48 | Outpatient (BNV) | payer MEDICARE, SELFPAY | PROVIDERS: PCP Family Medicine; Visit Provider Nurse Practitioner | DX: R77.8 Other specified abnormalities of plasma proteins (principal); I10 Essential (primary) hypertension | CPT/HCPCS: 78452; 93016; 93018 ==

== ENCOUNTER 2023-05-27 09:30 | Outpatient (AMB) | payer MEDICARE, SELFPAY ==
--- NOTE | 2023-05-27 09:52 | A.OFFVIS_ITS ---
Intake Vital Signs 05/27/23 09:53 Height 5 ft 4 in Weight 142 lb 13.753 oz BMI 24.5 BP 130/82 Blood Pressure Location Lt brachial Position Sitting Pulse 59 Pulse Source Pulse Oximeter Intake Visit Reasons: f/u after testing Mechanics Handyman Required: No Allergies No Known Allergies Allergy (Verified 05/27/23 09:54) Medication List - Last Reconciled 05/27/23 by Katalina Burton NP-C amlodipine 5 mg See Protocol PO DAILY aspirin 81 mg PO DAILY cefuroxime axetil 500 mg PO BID digoxin 125 mcg PO DAILY hydroxyurea 500 mg PO MOTUWETHFR@0900 hydroxyurea 1,000 mg PO SUSA@0900 levothyroxine 75 mcg PO DAILY@0600 lisinopril 10 mg PO DAILY lorazepam 0.5 mg PO BID PRN lovastatin 10 mg PO DAILY metoprolol tartrate 50 mg PO BID HPI f/u after testing HPI Details Dee is an 82-year-old female with past medical history of hypertension, hyperlipidemia who was recently admitted to [facility] after a fall and weakness and was found to have UTI, positive blood cultures and elevated troponin levels. Her troponin elevation was felt to be related to sepsis. An echocardiogram and outpatient nuclear stress test were done. She now presents for follow-up. Today she reports that she continued to have weakness after her hospital discharge. Only in the last 1-2 weeks as she started to feel like her normal self. She denies any chest discomfort at rest or with activity. She has no shortness of breath, heart palpitations, presyncope, syncope, PND, orthopnea or edema. She remains active throughout the day. She takes her medications as directed. She tells me she takes digoxin due to having issues with tachycardia approximately 50 years ago. She has been on digoxin since that time and says that at times it feels like her rapid heartbeat wants to start but it does not. She is not interested in stopping this medication. [facility] Medical History Uncontrolled hypertension Hypothyroidism Polycythemia Hyperlipidemia Hypertension Surgical History No pertinent past surgical history Social History Household Members: None Housing: House Do you presently have visiting nurse or other home services: No Alcohol intake: current Alcohol intake frequency: does not drink Patient Tobacco Use Status: Never used Tobacco Second Hand Smoke Exposure: No service: No Review of Systems Const All systems reviewed & are unremarkable except as noted in HPI and below ENT Denies dizziness Card Denies chest pain, Denies chest pain at rest, Denies chest pain with activity, Denies rapid heart rate, Denies pedal edema, Denies edema, Denies leg edema, Denies lightheadedness, Denies palpitations, Denies dyspnea, Denies dyspnea on exertion and Denies orthopnea Resp Denies cough, Denies dyspnea and Denies dyspnea on exertion GI Denies hematochezia and Denies change in stool character Musc Denies abnormal gait, Denies limited range of motion, Denies muscle cramps, Denies muscle weakness, Denies numbness, Denies radiating pain into limb, Denies stiffness and Denies tingling Neuro Denies abnormal gait, Denies dizziness, Denies numbness and Denies tingling Endo Denies palpitations Physical Exam Vital Signs: Last Vital Signs Pulse 59 05/27/23 09:53 BP 130/82 05/27/23 09:53 BMI result Body Mass Index 24.5 Const General: cooperative, healthy appearing, comfortable and no acute distress Orientation/consciousness: patient oriented x3 Neck Neck: Yes normal visual inspection Resp Effort & Inspection: normal respiratory effort Auscultation: clear to auscultation bilaterally, no crackles, no rales, no rhonchi and no wheezes Cardio Jugular venous distension: no JVD Rate: regular rate Rhythm: regular rhythm Heart sounds: S1 normal heart sound present, S2 normal heart sound present, no murmurs and no rubs Skin General skin exam: no rashes or lesions noted Neuro General: patient oriented x3 Extrem General: Yes normal to inspection Psych Appearance: grossly normal Mental Status: mental status grossly normal Speech and movement: Normal speech and movement present Assessment & Plan Assessment & Plan (1) Troponin level elevated: Code(s): R77.8 - Other specified abnormalities of plasma proteins Plan: [facility] [place] admission in March after having a fall and weakness. She was found to have UTI, positive blood cultures, elevated troponin. Initial troponin 57.2, max 83.6. EKG showed sinus rhythm with no acute ST or T-wave abnormalities. She had no known cardiac history with the exception of tachycardia remotely. An echocardiogram was done on 04/01/2023 showing EF greater than 70%, moderate to severe concentric LVH, no obvious valve abnormality. A nuclear stress test was done on 05/23/2023 showing normal myocardial perfusion imaging. Today she reports having residual weakness following hospital discharge which has since resolved. She denies any anginal sounding symptoms. Spent time reviewing test results with her in detail. She has longstanding history of hypertension which she tells me has been controlled for the last 5 years. Blood pressure was elevated during her hospital admission. Amlodipine 5 mg daily was added at that time. She tells me that she has not been taking the amlodipine recently. Blood pressure today initially 130/82, recheck done by me after resting for several minutes showed blood pressure 118/62. At present she can continue her current meds including lisinopril, metoprolol. Recommend home blood pressure juan luis toring, especially in the evenings. That is when her blood pressure was elevated at [facility] [place]. If her systolic is running greater than 140 she is to restart amlodipine. She prefers to continue to follow with PCP for her hypertension, LVH. She has an upcoming appointment with her PCP in the near future and will discuss follow-up with Cardiology at that time. At present will make her follow-up as needed. I did express the strict importance for good blood pressure control with her. (2) Uncontrolled hypertension: Code(s): I10 - Essential (primary) hypertension Plan: As above (3) Acute UTI: Code(s): N39.0 - Urinary tract infection, site not specified Plan: Resolved (4) Bacteremia due to Gram-negative bacteria: Code(s): R78.81 - Bacteremia Plan: Resolved (5) LVH (left ventricular hypertrophy): Code(s): I51.7 - Cardiomegaly Plan: Moderate to severe LVH. Needs good blood pressure control. Signs and symptoms of heart failure reviewed. Coding Level of Care Code Est Pt Level 3 (66605) Diagnoses Troponin level elevated R77.8 Uncontrolled hypertension I10 Acute UTI N39.0 Bacteremia due to Gram-negative bacteria R78.81 LVH (left ventricular hypertrophy) I51.7 Time Spent (min) 26
[2023-05-27 09:53] VITALS: BP 130/82; PULSE 59; BMI 24.5
== END 2023-05-27 10:33 | disposition home or self-care (01) ==
PROVIDERS: PCP Family Medicine; Visit Provider Nurse Practitioner Family
DX: R77.8 Other specified abnormalities of plasma proteins (principal); I10 Essential (primary) hypertension; N39.0 Urinary tract infection, site not specified; R78.81 Bacteremia; I51.7 Cardiomegaly
CPT/HCPCS: 99213

== ENCOUNTER → 2023-05-27 09:30 | Outpatient (BNVA) | payer MEDICARE, SELFPAY | PROVIDERS: PCP Family Medicine; Visit Provider Nurse Practitioner Family | DX: R77.8 Other specified abnormalities of plasma proteins (principal); I11.9 Hypertensive heart disease without heart failure; R78.81 Bacteremia | CPT/HCPCS: 99212 ==